=== PATIENT | male | born 1990 | race African-American/Black ===

== ENCOUNTER 2021-10-11 13:45 | Emergency (ER) | payer OTHER ==
[2021-10-11 13:59] VITALS: BP 128/80; PULSE 83; TEMP 98; BMI 30.8
[2021-10-11] MEDS ORDERED: CYCLOBENZAPRINE HCL 10 MG TABLET (FP) PO ONE (16:50)
[2021-10-11] MEDS ORDERED: KETOROLAC TROMETHAMINE 30 MG/1 ML VIAL IM ONE (16:50)
[2021-10-11] MEDS ORDERED: KETOROLAC TROMETHAMINE 30 MG/1 ML VIAL ONE (16:54)
[2021-10-11] MEDS ORDERED: CYCLOBENZAPRINE HCL 10 MG TABLET (FP) ONE (16:54)
== END 2021-10-11 17:24 | disposition home or self-care (01) ==
LOC: JERFT 13:45
PROC: 3E0233Z Introduction of Anti-inflammatory into Muscle, Percutaneous Approach (ICD-10-PCS; principal; 2021-10-11)
DX: M79.10 Myalgia, unspecified site (principal); V86.5 Driver of special all-terrain or other off-road motor vehicle injured in nontraffic accident
CPT/HCPCS: 72070-TC-FY; 72100-TC-FY; 99284-25

== ENCOUNTER 2022-05-23 14:36 | Emergency (ER) | payer OTHER ==
[2022-05-23 14:41] VITALS: BP 136/94; PULSE 81; RESP 18; TEMP 98; BMI 30.1
[2022-05-23] MEDS ORDERED: IBUPROFEN 600 MG TABLET (FP) PO ONE ×2 (15:23→15:27)
== END 2022-05-23 16:06 | disposition home or self-care (01) ==
LOC: JERFT 14:36
DX: M54.50 Low back pain, unspecified (principal)
CPT/HCPCS: 99283-25

== ENCOUNTER 2023-11-14 14:22 | Emergency (ER) | payer OTHER ==
[2023-11-14 14:26] VITALS: BP 135/87; PULSE 83; RESP 18; TEMP 97; BMI 30.8
== END 2023-11-14 14:54 | disposition home or self-care (01) ==
LOC: JERFT 14:22
DX: S76.311A Strain of muscle, fascia and tendon of the posterior muscle group at thigh level, right thigh, initial encounter (principal); M79.651 Pain in right thigh; X50.9XXA Other and unspecified overexertion or strenuous movements or postures, initial encounter; Y93.89 Activity, other specified; Y92.009 Unspecified place in unspecified non-institutional (private) residence as the place of occurrence of the external cause
CPT/HCPCS: 99283-25

== ENCOUNTER 2024-05-17 19:13 | Emergency (ER) | payer OTHER, BC ==
[2024-05-17 19:26] VITALS: BP 134/80; PULSE 61; RESP 18; TEMP 98.1; BMI 30.8
[2024-05-17] MEDS ORDERED: METHOCARBAMOL 500 MG TABLET ONE (20:31)
[2024-05-17] MEDS ORDERED: LIDOCAINE 4% PATCH TP ONE (20:31)
[2024-05-17] MEDS ORDERED: IBUPROFEN 600 MG TABLET (FP) PO ONE (20:31)
[2024-05-17] MEDS: LIDOCAINE 4% PATCH TP ONE (20:34)
[2024-05-17] MEDS: IBUPROFEN 600 MG TABLET (FP) PO ONE (20:34)
[2024-05-17] MEDS: METHOCARBAMOL 500 MG TABLET PO ONE (20:35)
== END 2024-05-17 20:46 | disposition home or self-care (01) ==
LOC: JER 19:13 → JERFT 19:13
DX: S39.012A Strain of muscle, fascia and tendon of lower back, initial encounter (principal); X50.3XXA Overexertion from repetitive movements, initial encounter
CPT/HCPCS: 99283-25